=== PATIENT | male | born 1950 | race Caucasian/White ===

== ENCOUNTER 2022-01-11 05:13 | Emergency (ER) | payer MEDICARE, SELFPAY ==
[2022-01-11 05:31] VITALS: BP 153/104; PULSE 102; RESP 20; TEMP 37.4; O2SAT 97; BMI 25.9
--- NOTE | 2022-01-11 05:48 | CTR_ITS ---
PROCEDURE INFORMATION: Exam: CT Abdomen And Pelvis Without Contrast Exam date and time: 01/11/2022 6:29 AM Age: 71 years old Clinical indication: Abdominal pain; Localized; Right; Patient HX: C/O RT sided abd pain and distention with nausea. ; Additional info: Abd paain vomiting TECHNIQUE: Imaging protocol: Computed tomography of the abdomen and pelvis without contrast. Radiation optimization: All CT scans at this facility use at least one of these dose optimization techniques: automated exposure control; mA and/or kV adjustment per patient size (includes targeted exams where dose is matched to clinical indication); or iterative reconstruction. COMPARISON: No relevant prior studies available. RADIATION DOSE METRICS: Total DLP (mGy-cm): 1329.81 FINDINGS: Lungs: Strandy opacities are present in the lung bases likely representing atelectasis versus parenchymal or pleural scarring. Liver: Normal. No mass. Gallbladder and bile ducts: Subtle intermediate density material is seen within the gallbladder lumen likely representing sludge. Pancreas: Normal. No ductal dilation. Spleen: Normal. No splenomegaly. Adrenal glands: Normal. No mass. Kidneys and ureters: Strandy opacities are seen in the perinephric fascia bilaterally compatible with chronic scarring. Stomach and bowel: There are 2 contiguous duodenal diverticulum present, the largest is seen proximally measuring 3.5 x 2.6 x 4.1 cm, the more distal diverticulum measuring 2.2 x 1.6 x 3.4 cm. Few diverticula are seen on the sigmoid colon. There are no inflammatory changes seen to suggest diverticulitis. Appendix: No evidence of appendicitis. Intraperitoneal space: Unremarkable. No free air. No significant fluid collection. Vasculature: Unremarkable. No abdominal aortic aneurysm. Lymph nodes: Unremarkable. No enlarged lymph nodes. Urinary bladder: Unremarkable as visualized. Reproductive: Unremarkable as visualized. Bones/joints: There is a diffuse loss of disc height seen within the thoracolumbar spine compatible with degenerative disc disease. Soft tissues: There is a small right inguinal hernia containing fat. CT/CT abdomen pelvis wo con [id number] IMPRESSION: 1. Subtle intermediate density within the gallbladder lumen likely represents gallbladder sludge. 2. There are 2 prominent duodenal diverticula present, the largest is seen proximally measuring 3.5 x 2.6 x 4.1 cm. A smaller more distal diverticulum measures 2.2 x 1.6 x 3.4 cm. 3. Mild diverticulosis of the sigmoid colon 4. Small right inguinal hernia containing fat
--- NOTE | 2022-01-11 05:57 | W.ED.ABDPA2 ---
Documented by User: Ramin Frandy DO Ward 01/11/22 18:57 HPI - Abdominal Pain General: Chief Complaint: Abdominal Pain Stated Complaint: abd pain Time Seen by Provider: 01/11/22 05:25 History of Present Illness: 71-year-old male with no history of belly surgery. He is visiting from [place]. He presents with abdominal pain and vomiting since Thursday. He has had a couple of loose stools but no overt diarrhea. No sick contacts. His and he have been eating the same food, and she is not sick. His belly pain is more diffuse, but as of last night began to localize more in the right lower quadrant. MD elicited complaint: abdominal pain Pertinent past history: none Onset (ago): day(s) Pain Consistency: constant Location: Diffuse and RLQ Quality: cramping and aching Radiation: none Relieving factors: nothing Associated Symptoms: Reports loose stools, nausea, poor appetite and vomiting; Denies chills, coffee ground emesis, constipation, fever(s), hematemesis and melena Review of Systems Const: Denies: fever(s) or chills ENMT: Denies: throat pain Card: Denies: chest pain Resp: Denies: dyspnea GI: Reports: nausea and vomiting; Denies: hematemesis, coffee ground emesis, constipation or melena Physical Exam Const: COMMON NORMALS: no acute distress GENERAL APPEARANCE: cooperative; not frail appearing HENMT: COMMON NORMALS: normocephalic and atraumatic HEAD & SCALP: normocephalic and atraumatic FACE & SINUS: normal facial exam Eye: COMMON NORMALS: Equal, round and reactive pupils present and EOMs intact bilaterally PUPIL: Yes Equal, round and reactive pupils present Neck/C-Spine: COMMON NORMALS: full ROM GENERAL: Yes trachea midline Chest: CHEST: Yes Symmetrical chest wall rise Resp: COMMON NORMALS: normal respiratory effort, No use of accessory muscles and clear to auscultation bilaterally AUSCULTATION: clear to auscultation bilaterally Cardio: COMMON NORMALS: regular rate and regular rhythm RATE: regular rate RHYTHM: regular rhythm GI: INSPECTION: Yes abdominal distension AUSCULTATION: Yes Hyperactive bowel sounds present PALPATION: Yes Firmness to palpation present (GI), Yes Tenderness to palpation present (GI) and No Guarding due to palpation present (GI) Extremity: COMMON NORMALS: normal to inspection Neuro: GINA COMA SCALE: document GCS findings Gina coma scale eye opening: Spontaneous [place]ina coma scale verbal response: Orientated [place] coma scale motor response: Obey commands [place] coma scale total score: 15 Course Vital Signs: Vital signs: Vital Signs Temperature 99.4 F 01/11/22 05:31 Pulse Rate 90 01/11/22 07:32 Respiratory Rate 14 01/11/22 07:32 Blood Pressure 151/87 01/11/22 07:32 Pulse Oximetry 96 01/11/22 07:32 MDM - Abdominal Pain Medical Decision Making Patient is pending laboratory and imaging, will be checked out at shift change. jr Lab Data : 01/11/22 06:02 01/11/22 06:02 Labs/Radiology: Radiology Impressions Abdomen/Pelvis CT 01/11/22 05:48 IMPRESSION: 1. Subtle intermediate density within the gallbladder lumen likely represents gallbladder sludge. 2. There are 2 prominent duodenal diverticula present, the largest is seen proximally measuring 3.5 x 2.6 x 4.1 cm. A smaller more distal diverticulum measures 2.2 x 1.6 x 3.4 cm. 3. Mild diverticulosis of the sigmoid colon 4. Small right inguinal hernia containing fat Laboratory Results WBC 10.3 10^3/uL (4.0-10.0) H 01/11/22 06:02 RBC 5.19 10^6/uL (4.1-5.3) 01/11/22 06:02 Hgb 16.3 g/dL (11.7-16.6) 01/11/22 06:02 Hct 47.3 % (42.0-52.0) 01/11/22 06:02 MCV 91.1 fl (80-94) 01/11/22 06:02 MCH 31.4 pg (28.0-34.0) 01/11/22 06:02 MCHC 34.5 g/dL (30.0-36.0) 01/11/22 06:02 RDW 12.1 % (12.1-15.1) 01/11/22 06:02 Plt Count 184 10^3/cmm (130-400) 01/11/22 06:02 MPV 9.3 fL (7.4-10.4) 01/11/22 06:02 Neut % (Auto) 81.3 % 01/11/22 06:02 Lymph % (Auto) 8.8 % 01/11/22 06:02 [place] % (Auto) 8.6 % 01/11/22 06:02 Eos % (Auto) 0.8 % 01/11/22 06:02 Baso % (Auto) 0.3 % 01/11/22 06:02 Neut # (Auto) 8.36 10^3/uL (1.8-7.7) H 01/11/22 06:02 Lymph # (Auto) 0.9 10^3/uL (0.8-4.8) 01/11/22 06:02 [place] # (Auto) 0.9 10^3/uL (0.2-0.9) 01/11/22 06:02 Eos # (Auto) 0.1 10^3/uL (0.0-0.8) 01/11/22 06:02 Baso # (Auto) 0.0 10^3/uL (0.0-0.1) 01/11/22 06:02 Nucleated RBC % (auto) 0 % 01/11/22 06:02 Nucleated RBCs # 0.0 /100WBC 01/11/22 06:02 Sodium 134 mmol/L (136-145) L 01/11/22 06:02 Potassium 3.7 mmol/L (3.5-5.1) 01/11/22 06:02 Chloride 99 mmol/L (98-107) 01/11/22 06:02 Carbon Dioxide 24 mmol/L (22-29) 01/11/22 06:02 Anion Gap 14.7 (5-19) 01/11/22 06:02 BUN 14 mg/dL (8-23) 01/11/22 06:02 Creatinine 0.9 mg/dL (0.7-1.2) 01/11/22 06:02 GFR Calculation 83.7 mL/min (90-130) L 01/11/22 06:02 Glucose 118 mg/dL (65-115) H 01/11/22 06:02 Calculated Osmolality 280 mOsm/kg (285-295) L 01/11/22 06:02 Lactate 1.1 mmol/L (0.5-2.2) 01/11/22 06:20 Calcium 9.3 mg/dL (8.5-10.5) 01/11/22 06:02 Total Bilirubin 1.1 mg/dL (0.15-1.2) 01/11/22 06:02 AST 22 U/L (0-40) 01/11/22 06:02 ALT 23 U/L (0-41) 01/11/22 06:02 Alkaline Phosphatase 104 IU/L (40-130) 01/11/22 06:02 C-Reactive Protein 68.0 mg/L (0.0-4.9) H 01/11/22 06:02 Total Protein 7.0 g/dL (6.6-8.7) 01/11/22 06:02 Albumin 4.2 g/dL (3.5-5.2) 01/11/22 06:02 Globulin 2.8 g/dL (1.3-4.6) 01/11/22 06:02 Lipase 26 U/L (13-60) 01/11/22 06:02 Discharge Plan Discharge Patient Disposition: Home Clinical Impression: Inguinal hernia, Abdominal pain, Nausea Condition: Stable Prescriptions: New ondansetron 4 mg tablet,disintegrating 4 mg PO Q8H PRN (Reason: nausea and vomiting) 4 Days Qty: 20 0RF Discharge Orders: Discharge ED (Routine); Ordered 01/11/22 Ordered By: Charanjit Narayanan Patient Instructions: Inguinal Hernia (ED), Abdominal Pain (ED) Coding Level of Care Code ED Food And Nutrition Services Assistant for Chg Fwd Documented by User: Charanjit Narayanan MD 01/11/22 07:16 HPI - Abdominal Pain General: Chief Complaint: Abdominal Pain Stated Complaint: abd pain Time Seen by Provider: 01/11/22 05:25 Course Reevaluation(s): Reevaluation #1: Signout from Dr. Hopper. Patient here with right-sided abdominal pain and nausea. Awaiting test results and CT. I talked to the patient about the test results including the CT finding of a right inguinal hernia with fat in the hernia defect. I also discussed with him his elevated white blood cell count and the sludge in his gallbladder. We will write for Zofran for nausea, and discharged with precautions to return for worsening or changing symptoms. Vital Signs: Vital signs: Vital Signs Temperature 99.4 F 01/11/22 05:31 Pulse Rate 90 01/11/22 07:32 Respiratory Rate 14 01/11/22 07:32 Blood Pressure 151/87 01/11/22 07:32 Pulse Oximetry 96 01/11/22 07:32 MDM - Abdominal Pain Lab Data : 01/11/22 06:02 01/11/22 06:02 Labs/Radiology: Radiology Impressions Abdomen/Pelvis CT 01/11/22 05:48 IMPRESSION: 1. Subtle intermediate density within the gallbladder lumen likely represents gallbladder sludge. 2. There are 2 prominent duodenal diverticula present, the largest is seen proximally measuring 3.5 x 2.6 x 4.1 cm. A smaller more distal diverticulum measures 2.2 x 1.6 x 3.4 cm. 3. Mild diverticulosis of the sigmoid colon 4. Small right inguinal hernia containing fat Laboratory Results WBC 10.3 10^3/uL (4.0-10.0) H 01/11/22 06:02 RBC 5.19 10^6/uL (4.1-5.3) 01/11/22 06:02 Hgb 16.3 g/dL (11.7-16.6) 01/11/22 06:02 Hct 47.3 % (42.0-52.0) 01/11/22 06:02 MCV 91.1 fl (80-94) 01/11/22 06:02 MCH 31.4 pg (28.0-34.0) 01/11/22 06:02 MCHC 34.5 g/dL (30.0-36.0) 01/11/22 06:02 RDW 12.1 % (12.1-15.1) 01/11/22 06:02 Plt Count 184 10^3/cmm (130-400) 01/11/22 06:02 MPV 9.3 fL (7.4-10.4) 01/11/22 06:02 Neut % (Auto) 81.3 % 01/11/22 06:02 Lymph % (Auto) 8.8 % 01/11/22 06:02 [place] % (Auto) 8.6 % 01/11/22 06:02 Eos % (Auto) 0.8 % 01/11/22 06:02 Baso % (Auto) 0.3 % 01/11/22 06:02 Neut # (Auto) 8.36 10^3/uL (1.8-7.7) H 01/11/22 06:02 Lymph # (Auto) 0.9 10^3/uL (0.8-4.8) 01/11/22 06:02 [place] # (Auto) 0.9 10^3/uL (0.2-0.9) 01/11/22 06:02 Eos # (Auto) 0.1 10^3/uL (0.0-0.8) 01/11/22 06:02 Baso # (Auto) 0.0 10^3/uL (0.0-0.1) 01/11/22 06:02 Nucleated RBC % (auto) 0 % 01/11/22 06:02 Nucleated RBCs # 0.0 /100WBC 01/11/22 06:02 Sodium 134 mmol/L (136-145) L 01/11/22 06:02 Potassium 3.7 mmol/L (3.5-5.1) 01/11/22 06:02 Chloride 99 mmol/L (98-107) 01/11/22 06:02 Carbon Dioxide 24 mmol/L (22-29) 01/11/22 06:02 Anion Gap 14.7 (5-19) 01/11/22 06:02 BUN 14 mg/dL (8-23) 01/11/22 06:02 Creatinine 0.9 mg/dL (0.7-1.2) 01/11/22 06:02 GFR Calculation 83.7 mL/min (90-130) L 01/11/22 06:02 Glucose 118 mg/dL (65-115) H 01/11/22 06:02 Calculated Osmolality 280 mOsm/kg (285-295) L 01/11/22 06:02 Lactate 1.1 mmol/L (0.5-2.2) 01/11/22 06:20 Calcium 9.3 mg/dL (8.5-10.5) 01/11/22 06:02 Total Bilirubin 1.1 mg/dL (0.15-1.2) 01/11/22 06:02 AST 22 U/L (0-40) 01/11/22 06:02 ALT 23 U/L (0-41) 01/11/22 06:02 Alkaline Phosphatase 104 IU/L (40-130) 01/11/22 06:02 C-Reactive Protein 68.0 mg/L (0.0-4.9) H 01/11/22 06:02 Total Protein 7.0 g/dL (6.6-8.7) 01/11/22 06:02 Albumin 4.2 g/dL (3.5-5.2) 01/11/22 06:02 Globulin 2.8 g/dL (1.3-4.6) 01/11/22 06:02 Lipase 26 U/L (13-60) 01/11/22 06:02 Discharge Plan Discharge Patient Disposition: Home Clinical Impression: Inguinal hernia, Abdominal pain, Nausea Condition: Stable Prescriptions: New ondansetron 4 mg tablet,disintegrating 4 mg PO Q8H PRN (Reason: nausea and vomiting) 4 Days Qty: 20 0RF Discharge Orders: Discharge ED (Routine); Ordered 01/11/22 Ordered By: Charanjit Narayanan Patient Instructions: Inguinal Hernia (ED), Abdominal Pain (ED) Coding Level of Care Code ED Food And Nutrition Services Assistant for Lia Carroll
[2022-01-11 06:06] LABS: Basophils % 0.3 %; Eosinophils # 0.1 10^3/uL (0.0-0.8); Eosinophils % 0.8 %; Hematocrit 47.3 % (42.0-52.0); Hemoglobin 16.3 g/dL (11.7-16.6); Lymphocytes # 0.9 10^3/uL (0.8-4.8); Lymphocytes % 8.8 %; Mean Corpuscular HGB Conc 34.5 g/dL (30.0-36.0); Mean Corpuscular Hemoglobin 31.4 pg (28.0-34.0); Mean Corpuscular Volume 91.1 fl (80-94); Mean Platelet Volume 9.3 fL (7.4-10.4); Monocytes # 0.9 10^3/uL (0.2-0.9); Monocytes % 8.6 %; Neutrophils # 8.36 10^3/uL (1.8-7.7); Neutrophils % 81.3 %; Nucleated Red Blood Cells % 0 %; Platelet Count 184 10^3/cmm (130-400); Red Blood Count 5.19 10^6/uL (4.1-5.3); Red Cell Distribution Width 12.1 % (12.1-15.1); White Blood Count 10.3 10^3/uL (4.0-10.0)
[2022-01-11] MEDS: ondansetron 2 mg/ML SDV 2 mL 8 MG IVP (06:08)
[2022-01-11] MEDS: sodium chloride 0.9% 1,000 ML 999 ML IV (06:08)
[2022-01-11 06:12] VITALS: BP 153/87; PULSE 97; RESP 18; O2SAT 96
[2022-01-11 06:27] LABS: Alanine Aminotransferase 23 U/L (0-41); Albumin Level 4.2 g/dL (3.5-5.2); Alkaline Phosphatase 104 IU/L (40-130); Anion Gap 14.7 (5-19); Aspartate Amino Transferase 22 U/L (0-40); Blood Urea Nitrogen 14 mg/dL (8-23); Calcium 9.3 mg/dL (8.5-10.5); Carbon Dioxide 24 mmol/L (22-29); Chloride 99 mmol/L (98-107); Globulin 2.8 g/dL (1.3-4.6); Glomerular Filtration Rate 83.7 mL/min (90-130); Glucose 118 mg/dL (65-115); Lipase 26 U/L (13-60); Osmolality Calculated 280 mOsm/kg (285-295); Potassium 3.7 mmol/L (3.5-5.1); Sodium 134 mmol/L (136-145); Total Bilirubin 1.1 mg/dL (0.15-1.2)
[2022-01-11 06:48] VITALS: BP 153/85; PULSE 90; RESP 18; O2SAT 94
[2022-01-11 06:49] LABS: Lactate (Lactic Acid level) 1.1 mmol/L (0.5-2.2)
--- NOTE | 2022-01-11 07:09 | PC.NURSE ---
Shift report received. pt resting in bed with family in room. Fluids continued. Pt denies current pain. Care assumed.
[2022-01-11 07:32] VITALS: BP 151/87; PULSE 90; RESP 14; O2SAT 96
== END 2022-01-11 07:28 | disposition home or self-care (01) ==
PROVIDERS: Emergency Provider Emergency Medicine
DX: K40.90 Unilateral inguinal hernia, without obstruction or gangrene, not specified as recurrent (principal); R10.31 Right lower quadrant pain; R11.2 Nausea with vomiting, unspecified
CPT/HCPCS: 74176; 80053; 83605; 83690; 85025; 86140; 96361; 96374; 99284; J2405; J7030

== ENCOUNTER 2022-01-15 08:31 | Emergency (ER) | payer MEDICARE, SELFPAY ==
[2022-01-15 08:35] VITALS: BP 175/105; PULSE 95; RESP 18; TEMP 36.6; O2SAT 97; BMI 25.9
--- NOTE | 2022-01-15 08:55 | W.ED.ABDPA2 ---
HPI - Abdominal Pain General: Chief Complaint: Abdominal Pain Stated Complaint: abdomen pain Time Seen by Provider: 01/15/22 08:32 Source: patient Mode of arrival: ambulatory Limitations: no limitations History of Present Illness: Patient is a nice 71-year-old male who presents to ED today with a complaint of generalized abdominal pains. Patient states discomfort has been present over the past week or so. He was seen at our facility approximately 3 to 4 days ago for similar complaints. Blood work overall was fairly unremarkable. His CT scan showed a fat-containing right inguinal hernia, some duodenal diverticuli, sigmoid diverticulosis, and gallbladder sludge. He states while he was in the ED he was given IV Zofran which miraculously took away all of his discomfort. He states he was given an oral prescription of this which unfortunately did not yield the same results. Patient tells me he feels nauseous but has not had any episodes of vomiting. He states he has had the urge to defecate but often times cannot. He does report a bowel movement this morning but states it was slightly harder and larger in caliber. He is not having any black or tarry stools. No rectal bleeding. Has not been running fevers. He does not complain of any chest/back pain, shortness of breath, or difficulty breathing. Patient states he is able to eat small amount of meals throughout the day. He states his abdominal pain seems to worsen after eating dinner. Of note patient arrives hypertensive. He states normally he takes Propranolol for his blood pressure but he [place] and has not had it in over a week. MD elicited complaint: abdominal pain Pertinent past history: none Onset (ago): day(s) Pain Consistency: intermittent Location: Diffuse Radiation: none Migration to: no migration Exacerbating factors: eating Relieving factors: nothing Associated Symptoms: Reports bloating and nausea; Denies chills, diarrhea, dysuria, fever(s), heartburn, hematochezia, hematemesis, melena, syncope and vomiting Review of Systems Const: Denies: fever(s), chills, body aches, fatigue or malaise Eyes: Denies: change in vision or blurry vision Card: Denies: chest pain, palpitations, irregular heart rhythm, lightheadedness, syncope or dyspnea on exertion Resp: Denies: dyspnea, productive cough or pain on inspiration GI: Reports: abdominal pain, nausea and bloating; Denies: vomiting, hematemesis, heartburn, diarrhea, pain on defecation, hematochezia or melena : Denies: flank pain, difficulty urinating or dysuria Musc: Denies: neck pain, back pain, extremity pain, extremity swelling or joint pain Skin/Breast: Denies: rash Neuro: Denies: headache(s), numbness in extremities, weakness in extremities or sensory changes Physical Exam Const: COMMON NORMALS: no acute distress, patient oriented x3, no limitations, alert and well nourished GENERAL APPEARANCE: cooperative ORIENTATION/CONSCIOUSNESS: Yes awake, Yes oriented to person, Yes oriented to place and Yes oriented to time HENMT: COMMON NORMALS: normocephalic and atraumatic HEAD & SCALP: normal to inspection, normocephalic and atraumatic Neck/C-Spine: COMMON NORMALS: no JVD GENERAL: Yes normal visual inspection Chest: COMMONS NORMALS: normal inspection of the chest and normal palpation of entire chest wall Resp: COMMON NORMALS: normal respiratory effort and clear to auscultation bilaterally AUSCULTATION: clear to auscultation bilaterally Cardio: COMMON NORMALS: no JVD, regular rate and regular rhythm RATE: regular rate RHYTHM: regular rhythm GI: COMMON NORMALS: Normal to inspection, nondistended, normoactive bowel sounds present, Soft to palpation, non-tender, No hepatosplenomegaly present and no masses PALPATION: Yes Soft to palpation and Yes No hepatosplenomegaly present OTHER: patient does not seem to be overly bothered by palpation of his abdomen and states that currently my palpation does not seem to elicit any further discomfort from him : COMMON NORMALS: Yes no CVA tenderness BLADDER/KIDNEY EXAM: Yes no CVA tenderness Back/Pelvis: COMMON NORMALS: no CVA tenderness, thoracic and lumbar spine normal to inspection, no thoracic nor lumbar tenderness and thoraco-lumbar ROM normal THORACIC SPINE/UPPER BACK: No paraspinal muscle tenderness LUMBAR SPINE/LOWER BACK: No paraspinal muscle tenderness Extremity: COMMON NORMALS: normal to inspection GENERAL: Yes normal exam except as noted Neuro: TONA COMA SCALE: document GCS findings [place]ona coma scale eye opening: Spontaneous [place] coma scale verbal response: Orientated [place] coma scale motor response: Obey commands [place] coma scale total score: 15 COMMON NORMALS: patient oriented x3, moves all extremities, no focal motor deficits, no sensory deficits noted and gait normal SENSORIUM/ORIENTATION: Yes alert, Yes oriented to person, Yes oriented to place and Yes oriented to time Skin: COMMON NORMALS: no rashes or lesions noted GENERAL SKIN EXAM: no rashes or lesions noted Course Vital Signs: Vital signs: Vital Signs Temperature 97.8 F 01/15/22 08:35 Pulse Rate 95 01/15/22 08:35 Respiratory Rate 20 H 01/15/22 10:05 Blood Pressure 175/105 01/15/22 08:35 Pulse Oximetry 97 01/15/22 10:05 MDM - Abdominal Pain Medical Decision Making Vital signs apart from his hypertension heart are normal. We will go ahead and write a prescription and place him back on his propranolol. Blood work showing a normal white count. Chemistry panel is unremarkable. UA is normal. Repeat CT imaging showing a minimal gallbladder sludge and stranding as well as a questionable gallstone but ultimately no significant changes from prior imaging. US of his gallbladder shows gallbladder sludge but his wall is not thickened and there was no cholelithiasis. With these findings, coupled with his normal LFTs, I think he is stable to follow-up with general surgery as an outpatient for this. I am not sure if biliary colic could be the etiology for his discomfort. He does not complain of significant chest or back pains. At this time I think patient is stable to go home from an ED standpoint. We will place him on a different nausea medication as the oral Zofran did not seem to help much. We will also place him on pain medications that he can use sparingly for severe pain. Spoke about using Colace with these medications to prevent constipation. Will place referral with general surgery for follow-up of the gallbladder. Strict return to ED precautions verbally given to patient and who verbalized understanding. Lab Data : 01/15/22 09:05 01/15/22 09:05 Labs/Radiology: Radiology Impressions Abdomen/Pelvis CT 01/15/22 10:02 Impression: 1. Minimal sludge and gallbladder stranding along with a questionable gallstone can be seen with cholecystitis. 2. No significant change from prior CT abdomen and pelvis. Gallbladder Ultrasound 01/15/22 11:27 Impression: Sludge in the gallbladder. Laboratory Results WBC 9.5 10^3/uL (4.0-10.0) 01/15/22 09:05 RBC 4.99 10^6/uL (4.1-5.3) 01/15/22 09:05 Hgb 15.6 g/dL (11.7-16.6) 01/15/22 09:05 Hct 45.7 % (42.0-52.0) 01/15/22 09:05 MCV 91.6 fl (80-94) 01/15/22 09:05 MCH 31.3 pg (28.0-34.0) 01/15/22 09:05 MCHC 34.1 g/dL (30.0-36.0) 01/15/22 09:05 RDW 11.9 % (12.1-15.1) L 01/15/22 09:05 Plt Count 219 10^3/cmm (130-400) 01/15/22 09:05 MPV 8.8 fL (7.4-10.4) 01/15/22 09:05 Neut % (Auto) 81.3 % 01/15/22 09:05 Lymph % (Auto) 9.7 % 01/15/22 09:05 [place] % (Auto) 7.4 % 01/15/22 09:05 Eos % (Auto) 0.9 % 01/15/22 09:05 Baso % (Auto) 0.3 % 01/15/22 09:05 Neut # (Auto) 7.74 10^3/uL (1.8-7.7) H 01/15/22 09:05 Lymph # (Auto) 0.9 10^3/uL (0.8-4.8) 01/15/22 09:05 [place] # (Auto) 0.7 10^3/uL (0.2-0.9) 01/15/22 09:05 Eos # (Auto) 0.1 10^3/uL (0.0-0.8) 01/15/22 09:05 Baso # (Auto) 0.0 10^3/uL (0.0-0.1) 01/15/22 09:05 Nucleated RBC % (auto) 0 % 01/15/22 09:05 Nucleated RBCs # 0.0 /100WBC 01/15/22 09:05 Sodium 137 mmol/L (136-145) 01/15/22 09:05 Potassium 3.9 mmol/L (3.5-5.1) 01/15/22 09:05 Chloride 100 mmol/L (98-107) 01/15/22 09:05 Carbon Dioxide 25 mmol/L (22-29) 01/15/22 09:05 Anion Gap 15.9 (5-19) 01/15/22 09:05 BUN 16 mg/dL (8-23) 01/15/22 09:05 Creatinine 1.0 mg/dL (0.7-1.2) 01/15/22 09:05 GFR Calculation 74.1 mL/min (90-130) L 01/15/22 09:05 Glucose 108 mg/dL (65-115) 01/15/22 09:05 Calculated Osmolality 286 mOsm/kg (285-295) 01/15/22 09:05 Calcium 9.1 mg/dL (8.5-10.5) 01/15/22 09:05 Total Bilirubin 0.8 mg/dL (0.15-1.2) 01/15/22 09:05 AST 29 U/L (0-40) 01/15/22 09:05 ALT 34 U/L (0-41) 01/15/22 09:05 Alkaline Phosphatase 144 IU/L (40-130) H 01/15/22 09:05 Total Protein 7.4 g/dL (6.6-8.7) 01/15/22 09:05 Albumin 4.1 g/dL (3.5-5.2) 01/15/22 09:05 Globulin 3.3 g/dL (1.3-4.6) 01/15/22 09:05 Lipase 26 U/L (13-60) 01/15/22 09:05 Urine Color Yellow (Yellow) 01/15/22 10:10 Urine Appearance Clear (CLEAR) 01/15/22 10:10 Urine pH 6 (5-7) 01/15/22 10:10 Ur Specific [place] 1.015 (1.005-1.030) 01/15/22 10:10 Urine Protein Neg (Negative) 01/15/22 10:10 Urine Glucose (UA) Norm (Normal) 01/15/22 10:10 Urine Ketones Negative (Negative) 01/15/22 10:10 Urine Blood Neg (Negative) 01/15/22 10:10 Urine Nitrate Negative (Negative) 01/15/22 10:10 Urine Bilirubin Neg (Negative) 01/15/22 10:10 Urine Urobilinogen 1 mg/dL (Negative) H 01/15/22 10:10 Ur Leukocyte Esterase Negative (Negative) 01/15/22 10:10 Discharge Plan Discharge Patient Disposition: Home Clinical Impression: Sludge in gallbladder, Abdominal pain of unknown etiology, Hypertension Condition: Stable Prescriptions: New hydrocodone-acetaminophen 5-325 mg tablet 1 tab PO Q6H PRN (Reason: pain) Qty: 14 0RF Reglan 10 mg tablet 10 mg PO Q6H 7 Days Qty: 15 0RF propranolol 10 mg tablet 10 mg PO BID Qty: 60 0RF No Action ondansetron HCl 4 mg tablet 4 mg PO Q8H PRN (Reason: Nausea) 0RF Excedrin Extra Strength 250-250-65 mg Tablet 2 tab PO Q6H PRN (Reason: Pain) 0RF famotidine 20 mg Tablet 20 mg PO DAILY 0RF Discharge Orders: Discharge ED (Routine); Ordered 01/15/22 Ordered By: Lauren Khalil Patient Instructions: Abdominal Pain (ED), Opioid Safety Coding Level of Care Code ED Accounting Manager Cpa for Chg Fwd Exam Comprehensive
[2022-01-15] MEDS: sodium chloride 0.9% 1,000 ML 999 ML IV (09:00)
[2022-01-15 09:16] LABS: Basophils % 0.3 %; Eosinophils # 0.1 10^3/uL (0.0-0.8); Eosinophils % 0.9 %; Hematocrit 45.7 % (42.0-52.0); Hemoglobin 15.6 g/dL (11.7-16.6); Lymphocytes # 0.9 10^3/uL (0.8-4.8); Lymphocytes % 9.7 %; Mean Corpuscular HGB Conc 34.1 g/dL (30.0-36.0); Mean Corpuscular Hemoglobin 31.3 pg (28.0-34.0); Mean Corpuscular Volume 91.6 fl (80-94); Mean Platelet Volume 8.8 fL (7.4-10.4); Monocytes # 0.7 10^3/uL (0.2-0.9); Monocytes % 7.4 %; Neutrophils # 7.74 10^3/uL (1.8-7.7); Neutrophils % 81.3 %; Nucleated Red Blood Cells % 0 %; Platelet Count 219 10^3/cmm (130-400); Red Blood Count 4.99 10^6/uL (4.1-5.3); Red Cell Distribution Width 11.9 % (12.1-15.1); White Blood Count 9.5 10^3/uL (4.0-10.0)
[2022-01-15] MEDS: ondansetron 2 mg/ML SDV 2 mL 4 MG IVP (09:28)
[2022-01-15 09:35] LABS: Alanine Aminotransferase 34 U/L (0-41); Albumin Level 4.1 g/dL (3.5-5.2); Alkaline Phosphatase 144 IU/L (40-130); Anion Gap 15.9 (5-19); Aspartate Amino Transferase 29 U/L (0-40); Blood Urea Nitrogen 16 mg/dL (8-23); Calcium 9.1 mg/dL (8.5-10.5); Carbon Dioxide 25 mmol/L (22-29); Chloride 100 mmol/L (98-107); Globulin 3.3 g/dL (1.3-4.6); Glomerular Filtration Rate 74.1 mL/min (90-130); Glucose 108 mg/dL (65-115); Lipase 26 U/L (13-60); Osmolality Calculated 286 mOsm/kg (285-295); Potassium 3.9 mmol/L (3.5-5.1); Sodium 137 mmol/L (136-145); Total Bilirubin 0.8 mg/dL (0.15-1.2); Total Protein 7.4 g/dL (6.6-8.7)
--- NOTE | 2022-01-15 10:02 | CT_ITS ---
WS: [id number] CT scan of the abdomen and pelvis without Oral and IV contrast. Additional two-dimensional coronal an d sagittal reconstruction was performed. 01/15/2022 Clinical Data: generalized abdominal/back pain Comparison: CT abdomen pelvis, 01/11/2022. DLP: 1804.[address] scans at [facility] use at least one of these dose optimization techniques: automated e xposure control; mA and/or kV adjustment per patient size (includes targeted exams where dose is matc hed to clinical indication); or iterative reconstruction. Findings: The lower lungs show no nodules, masses or effusions. The liver, spleen, adrenal glands and pancreas are normal. The gallbladder is distended with minimal pericholecystic stranding which can be seen in acute cholecystitis and a possible gallstone. The kidneys show no cyst or masses. No hydronephrosis or renal calculi are present. The abdominal aorta is normal in size. No appendicitis or diverticulitis is seen. No abscess, adenopathy, ascites, mass, obstruction or free air is seen. The stomach and small bowel and colon show no acute changes. The bladder is unremarkable. There is a fat-containing right inguinal hernia. The bones of the lower thorax, lumbar spine, pelvis, and hips show degenerative change and degenerati ve disc narrowing of the lumbar spine. CT/CT abdomen pelvis wo con [id number] Impression: 1. Minimal sludge and gallbladder stranding along with a questionable gallstone can be seen with cholecystitis. 2. No significant change from prior CT abdomen and pelvis.
[2022-01-15 10:05] VITALS: RESP 20; O2SAT 97
[2022-01-15] MEDS: morphine 4 mg/mL SDV 1 mL IVP (10:05)
[2022-01-15 10:20] LABS: Add Urine Microscopic? NO; Charge for UA Resulting for Rev
[2022-01-15 10:47] LABS: Bilirubin Urine Neg (Negative); Blood Urine Neg (Negative); Glucose Urine UA Norm (Normal); Ketones Urine Negative (Negative); Leukocyte Esterase Urine Negative (Negative); Nitrate Urine Negative (Negative); Protein Urine Neg (Negative); Specific Gravity, Urine 1.015 (1.005-1.030); Urine Appearance Clear (CLEAR); Urine Color Yellow (Yellow); Urobilinogen Urine 1 mg/dL (Negative); pH Urine 6 (5-7)
[2022-01-15] MEDS: metoprolol tartrate 1 mg/1 mL SDV 5 mL 2.5 MG IVP (10:49)
--- NOTE | 2022-01-15 11:27 | US_ITS ---
WS: [id number] Gallbladder and right upper quadrant ultrasound, 01/15/2022 Clinical Data: pain, abnormal CT findings Comparison: None. Findings: The gallbladder shows sludge but no stones. The wall measures 0.2 cm with no pericholecystic fluid. The common bile duct is 0.3 cm and there are no intrahepatic ductal abnormalities. Liver shows no cysts, masses or dilated intrahepatic ducts. The liver measures 18.3 cm. The portal ve in shows normal flow. The pancreas is obscured by overlying bowel gas but no cyst, pseudocyst, or evidence of pancreatitis is noted. Right kidney measures 12.3 cm and no cyst, masses or hydronephrosis can be seen. The aorta shows no vascular abnormalities. US/US gall bladder [id number] Impression: Sludge in the gallbladder.
--- NOTE | 2022-01-17 08:46 | DCPLANNER ---
Addendum entered by Ama Vincent 01/22/22 14:39: Patient had a follow up appointment scheduled for 01.22.22 with general surgery - appointment was cancelled. Original Note: manager country had message to schedule a follow up appointment for patient with general surgery. manager country sent patients information to the front office staff at general surgery. Patients information will be printed and reviewed. Clinic will call patient with appointment information.
== END 2022-01-15 12:50 | disposition home or self-care (01) ==
PROVIDERS: Emergency Provider Physician Assistant
DX: K82.8 Other specified diseases of gallbladder (principal); R10.9 Unspecified abdominal pain; I10 Essential (primary) hypertension
CPT/HCPCS: 36415; 74176; 76705; 80053; 81003; 83690; 85025; 96361; 96374; 96375; 99284; J2270; J2405; J3490; J7030